=== PATIENT | male | born 1985 | race Caucasian/White ===

== ENCOUNTER 2023-01-04 18:13 | Outpatient (CLI) | payer MEDICAID, SELFPAY | END 2023-01-04 18:14 | disposition home or self-care (01) | LOC: NFLDUCREF 18:14 | PROVIDERS: PCP Family Medicine; Visit Provider Nurse Practitioner Family | DX: L03.90 Cellulitis, unspecified (principal); R21 Rash and other nonspecific skin eruption | CPT/HCPCS: 86618 ==